=== PATIENT | male | born 1980 | race Caucasian/White ===

== ENCOUNTER 2018-03-23 08:32 | Outpatient (CLI) | payer OTHER | END 2018-03-23 08:33 | disposition home or self-care (01) | LOC: CAR 08:32 | PROVIDERS: ATTEND Family Medicine | DX: Z51.81 Encounter for therapeutic drug level monitoring (principal); Z79.899 Other long term (current) drug therapy; R79.89 Other specified abnormal findings of blood chemistry; R63.5 Abnormal weight gain; E74.8 Other specified disorders of carbohydrate metabolism; E66.9 Obesity, unspecified; R73.09 Other abnormal glucose; Z91.89 Other specified personal risk factors, not elsewhere classified | CPT/HCPCS: 36415; 80053; 80061; 82607; 82746; 83036; 84402; 84403; 84439; 84443; 85025; 93005; 93010 ==

== ENCOUNTER 2018-03-31 09:28 | Outpatient (CLI) | END 2018-03-31 09:29 | disposition home or self-care (01) | LOC: LAB 09:28 | PROVIDERS: ATTEND Family Medicine | DX: R79.89 Other specified abnormal findings of blood chemistry (principal) | CPT/HCPCS: 36415; 83001; 83002; 84146 ==